=== PATIENT | male | born 1965 | race Caucasian/White ===

== ENCOUNTER → 2021-05-25 09:12 | Outpatient (BNVA) | payer SELFPAY | PROVIDERS: PCP Internal Medicine | DX: Z02.79 Encounter for issue of other medical certificate (principal) ==

== ENCOUNTER → 2024-10-15 10:33 | Outpatient (BNVA) | payer OTHER, SELFPAY | PROVIDERS: PCP Internal Medicine; Visit Provider Physician Assistant Medical | DX: S83.92XA Sprain of unspecified site of left knee, initial encounter (principal); W18.30XA Fall on same level, unspecified, initial encounter | CPT/HCPCS: 73564; 99203 ==

== ENCOUNTER → 2024-10-21 07:39 | Outpatient (BNVA) | payer OTHER, SELFPAY | PROVIDERS: PCP Internal Medicine; Visit Provider Physician Assistant Medical | DX: S80.02XA Contusion of left knee, initial encounter (principal); S83.92XA Sprain of unspecified site of left knee, initial encounter; W18.30XA Fall on same level, unspecified, initial encounter; M23.52 Chronic instability of knee, left knee | CPT/HCPCS: 99213 ==

== ENCOUNTER → 2024-10-31 08:06 | Outpatient (BNVA) | payer OTHER, SELFPAY | PROVIDERS: PCP Internal Medicine; Visit Provider Physician Assistant Medical | DX: S80.02XD Contusion of left knee, subsequent encounter (principal); W18.30XD Fall on same level, unspecified, subsequent encounter; M23.52 Chronic instability of knee, left knee | CPT/HCPCS: 99213 ==

== ENCOUNTER → 2024-11-08 12:47 | Outpatient (BNVA) | payer OTHER, SELFPAY | PROVIDERS: PCP Internal Medicine; Visit Provider Physician Assistant Medical | DX: S80.02XD Contusion of left knee, subsequent encounter (principal); W18.30XD Fall on same level, unspecified, subsequent encounter; M23.52 Chronic instability of knee, left knee | CPT/HCPCS: 99213 ==

== ENCOUNTER → 2024-11-18 08:50 | Outpatient (BNVA) | payer OTHER, SELFPAY | PROVIDERS: Visit Provider Physician Assistant Medical | DX: S80.02XD Contusion of left knee, subsequent encounter (principal); W18.30XA Fall on same level, unspecified, initial encounter; M23.52 Chronic instability of knee, left knee | CPT/HCPCS: 99213 ==

== ENCOUNTER 2024-11-21 18:29 | Outpatient (REF) | payer OTHER, SELFPAY ==
--- NOTE | ~2024-11-21 | MR_ITS ---
EXAMINATION: MRI LEFT KNEE WITHOUT CONTRAST HISTORY: INSTABILITY COMPARISON: Comparison is made with the prior examination dated 05/13/2018. Correlation is also made with plain films of the left knee dated 10/15/2024. TECHNIQUE: Coronal T1 and fat-suppressed proton density, sagittal proton density and fat-suppressed proton density, and axial fat suppressed T2 weighted MR images of the left knee were obtained. FINDINGS: Bone marrow: Bone marrow signal intensity is normal. Joint effusion: There is a small to moderate joint effusion. Lyn's cyst: There is no Lyn's cyst. Articular cartilage: There is mild to moderate cartilage thinning involving the medial compartment and moderate osteoarthritis of the patellofemoral compartment with cartilage loss and subchondral marrow changes. Multiple cartilage fissures are seen involving the patellar cartilage. Muscles/soft tissues: The visualized muscles demonstrate normal signal intensity. Anterior cruciate ligament: Intact Posterior cruciate ligament: When compared to the prior examination, the posterior cruciate ligament is thickened and demonstrates increased signal intensity suggestive of a partial tear. Medial collateral ligament: Intact Lateral collateral ligament: Intact Medial meniscus: The posterior meniscal body and posterior horn are diminutive in size, which may be postsurgical in nature. There is a focus of increased signal intensity at the inferior margin of the posterior horn suggestive of a tear (series 10, images 7-9). Lateral meniscus: Intact Flexor mechanism: The popliteus, gastrocnemius, and hamstring tendons are intact. Quadriceps tendon: Intact Patellar tendon: Intact Patellar retinacula: Intact MR/MR knee LT wo con IMPRESSION: 1. Small to moderate joint effusion. Osteoarthritis of the medial and patellofemoral compartments as described. 2. Probable postsurgical changes involving the posterior body and posterior horn of the medial meniscus. There is likely an oblique tear of the posterior horn. 3. Posterior cruciate ligament is thickened and demonstrates increased signal intensity suggestive of a partial tear. Electronically signed by: Eagle Mike MD 11/22/2024 07:18 AM EDT
--- OUTSIDE RECORDS SUMMARY | 2024-11-21 20:05 | XMS_ITS ---
Author Name [facility] Organization Unknown Encounters Encounter Type Encounter Reason Primary Diagnosis Location Date Ambulatory [facility] 11/26/2021 Ambulatory Injury [facility] [place] 11/26/2021 Care Team Organization Name Specialty Phone Email Start Date End Da te [facility] 11/26
== END 2024-11-21 18:30 | disposition home or self-care (01) ==
LOC: HO.MRI 18:29
PROVIDERS: Visit Provider Internal Medicine
DX: M25.562 Pain in left knee (principal)
CPT/HCPCS: 73721

== ENCOUNTER → 2024-11-21 18:30 | Outpatient (BNV) | payer OTHER, SELFPAY | PROVIDERS: Visit Provider Radiology Diagnostic Radiology | DX: M17.12 Unilateral primary osteoarthritis, left knee (principal); M25.462 Effusion, left knee | CPT/HCPCS: 73721 ==

== ENCOUNTER 2024-12-02 08:19 | Outpatient (REF) | payer OTHER, SELFPAY ==
--- NOTE | ~2024-12-02 | XR_ITS ---
EXAMINATION: XR KNEE, LEFT CLINICAL INFORMATION: M25.562 - Pain in left knee COMPARISON: X-ray 10/15/2024 TECHNIQUE: Two views of the left knee. Bilateral knees one AP view FINDINGS: Left knee: Mild medial and patellofemoral arthrosis. No acute fracture or dislocation. Chronic appearing small ossification along the lateral aspect of the patella. There is density in the suprapatellar soft tissues, which could be related to overlapping densities, joint effusion difficult to exclude. Right knee: Single frontal view. Mild medial compartment arthritis. No acute osseous finding seen. XR/XR knee LT 3V IMPRESSION: Left knee: No acute osseous findings. Small chronic appearing ossification along the lateral aspect of the patella. Suprapatellar density from overlapping structures versus effusion. Electronically signed by: Doyle Cowan MD 12/02/2024 02:25 PM EDT
== END 2024-12-02 08:20 | disposition home or self-care (01) ==
LOC: HO.HOSX 08:19
PROVIDERS: Visit Provider Physician Assistant
DX: M17.12 Unilateral primary osteoarthritis, left knee (principal)
CPT/HCPCS: 20610; 73562; 99202; J0665; J1100; J2003

== ENCOUNTER 2024-12-02 13:52 | Outpatient (AMB) | payer OTHER, SELFPAY ==
--- NOTE | 2024-12-02 13:58 | MHC.OFFVIS ---
Vital Signs 12/02/24 14:30 Height 6 ft 5 in Weight 240 lb BMI 28.5 Intake Visit Reasons: WC-Left knee Instability -DOI 10/11/24 per TM Intake Note: Viral is a 59 year old male who presents today as a new patient for an evaluation of a work injury to left knee, DOI 10/11/24. 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 He was seen at work connection with complaints of swelling and instability. MRI was obtained and referred to orthopedics. Today patient reports pain at the posterior aspect of knee with flexing his knee and pain at medial and lateral aspect with squatting. His pain increases with stair use and prolong walking. He has been out of work since his injury. Hx of left knee medial menisectomy and chrondroplasty, performed by Dr. Anglin on 05/31/2017. Allergies No Known Allergies (No Known Allergies*) Allergy (Unverified 12/02/24 14:34) Medication List - Last Reconciled 12/02/24 by Joo Pascal PA-C amlodipine 10 mg PO DAILY triamterene-hydrochlorothiazid 75-50 mg 1 tab PO DAILY HPI HPI WC-Left knee Instability -DOI 10/11/24 per TM: Details: A 59-year-old gentleman presents to the office today for an injury he sustained to his left knee while at work on 10/11/2024. He states he was getting out of his truck when he tripped and landed on the left knee. Was seen at the work connection , x-rays and an MRI of the left knee were ordered and he was referred to Orthopedics for further evaluation. He has remained out of work since the date of injury. Prior to the injury he was ambulating without pain or limitations. [facility] Surgical History (Updated 12/02/24 @ 14:35 by FRANCISCO JAVIER Paredes) Hx of left knee surgery History of shoulder surgery Social History (Updated 12/02/24 @ 14:27 by FRANCISCO JAVIER Paredes) Patient Tobacco Use Status: Never used Tobacco Current occupational status: employed Current occupation: tow truck Review of Systems Const All systems reviewed & are unremarkable except as noted in HPI and below Physical Exam Vital Signs: BMI result Body Mass Index 28.5 Const General: cooperative and no acute distress Orientation/consciousness: patient oriented x3 Resp Effort & Inspection: normal respiratory effort and able to speak in complete sentences Cardio Peripheral pulses: Peripheral pulses 2+ throughout Neuro General: patient oriented x3 Extrem Other: Left knee normal to inspection he has full range of motion with crepitus and tenderness to palpation over the lateral aspect of the patella. No ligamentous laxity. Calf is supple and nontender neurovascularly intact. Office Procedures AMB Joint Injection/Aspiration Joint Injection/Aspiration Primary Site: left knee Prep: site was prepped using aseptic technique, ethochloride spray was applied and injection warnings given Injected: 40 mg of, DepoMedrol, with 3 mL of, 1% plain lidocaine, 0.25% bupivacaine, in the joint and decadron Approach Used: anterolateral Coding - Glenohumeral/Tronchanteric Bursa/Intraarticular Procedure code (CPT) selection complete Results Reviewed Results Reviewed: X-rays of the left knee obtained in the office today and reviewed by me show mild to moderate degenerative changes MR knee LT wo con IMPRESSION: 1. Small to moderate joint effusion. Osteoarthritis of the medial and patellofemoral compartments as described. 2. Probable postsurgical changes involving the posterior body and posterior horn of the medial meniscus. There is likely an oblique tear of the posterior horn. 3. Posterior cruciate ligament is thickened and demonstrates increased signal intensity suggestive of a partial tear. Electronically signed by: Eagle Mike MD 11/22/2024 07:18 AM EDT Assessment & Plan Assessment & Plan (1) Osteoarthritis of left patellofemoral joint: Code(s): M17.12 - Unilateral primary osteoarthritis, left knee Category: Medical Plan: We discussed options today which include conservative management with physical therapy and steroid injections. 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 An order for physical therapy has been placed and he will contact them to make an appointment. He was given a work note to remain out of work for the next 4 weeks at which point he will return without restrictions. If symptoms persist or worsen over the next 8-12 weeks she will follow up otherwise follow up as needed. Orders: Orders PT Evaluation and Treatment Today M17.12 - Unilateral primary osteoarthritis, left knee XR knee LT 3V Today M25.562 - Pain in left knee Coding Level of Care Code New Pt Level 3 (72341) Complex EM visit Add On G2211 Diagnoses Osteoarthritis of left patellofemoral joint M17.12 CPT Codes Coding - Joint 7: 72936 - Glenohumeral/Tronchanteric Bursa/Intraarticular ([id number])
[2024-12-02 14:30] VITALS: BMI 28.5
== END 2024-12-02 15:14 | disposition home or self-care (01) ==
LOC: HO.HOS 13:53
PROVIDERS: PCP Internal Medicine; Visit Provider Physician Assistant
DX: M17.12 Unilateral primary osteoarthritis, left knee (principal)
CPT/HCPCS: 20610; 99203

== ENCOUNTER → 2024-12-02 13:58 | Outpatient (BNV) | payer OTHER, SELFPAY | PROVIDERS: Visit Provider Radiology Diagnostic Ultrasound | DX: M25.562 Pain in left knee (principal) | CPT/HCPCS: 73562 ==

== ENCOUNTER 2025-01-22 06:56 | Outpatient (RCR) | payer OTHER, SELFPAY ==
--- NOTE | 2025-01-01 09:25 | MHC.PT.EP ---
[facility] [place] Office [place] [facility] [place] [facility] [address] [phone] F: [phone] F: [phone] F: [phone] F: [phone] Physical Therapy Plan of Care Date of Evaluation: 01/01/25 Date of Surgery: Diagnosis: Unilateral primary osteoarthritis, left knee Osteoarthritis of left patellofemoral joint Assessment: Pt is a very pleasant and motivated 59yo M who presents to PT with L knee pain. Pt reports on 10/11/24 he was working and he stepped out of the truck and fell. He was able to get up but had swelling and pain in his L knee later that day. He was OOW and returned to work this past Monday. He presents to PT with current impairments in pain, decreased LE strength, decreased endurance, decreased stability, and impaired body mechanics. He is limited functionally by prolonged sitting, stair navigation, and squatting. He is an excellent candidate for skilled PT in order to address current impairments to facilitate return to PLOF. He is recommended to be seen 2x/week for 4 weeks and will be reassessed at that time Frequency and Duration: The patient will be seen 2x/week for 4 weeks Short Term Goals: Pt will be I with HEP to promote self management of symptoms Pt will improve L knee extension strength to 4+/5 Pt will improve L hip extension strength to 4/5 Mcc Goals: Pt will achieve full knee and hip strength LLE to assist with prolonged standing and walking Pt will demonstrate ability to squat with proper mechanics and without pain Pt will ascend/descend 1 flight of stairs with reciprocal pattern with minimal pain Pt will demonstrate improvements in function as evidenced by statistically significant improvement in LEFI outcome measure Treatment Plan: Modalities to reduce pain, spasms and effusion. Manual therapy to restore motion and function. Therapeutic exercise to improve strength and flexibility. Neuromuscular re-education for posture and balance. Therapeutic activities to return to functional activities of daily living. Electronically signed by: Aparna Henriquez, PT, DPT Please sign and return to therapist. Thank you for your referral.
--- NOTE | 2025-01-22 08:27 | MHC.PT.DC ---
[facility] [place] Office [place] Office [place] Office [address] [phone] F: [phone] F: [phone] F: [phone] F: [phone] Physical Therapy Discharge Report Diagnosis: Unilateral primary osteoarthritis, left knee Osteoarthritis of left patellofemoral joint Date of Surgery: Date of Evaluation: 01/01/25 Date of Discharge: 01/22/25 Treatments to Date: 6 Cancellations to Date: No Shows to Date: Discharge Status: Achieved Goals Improved Function Independent with HEP Discharge Summary: ASAD PRESENTED THIS AM FEELING READY FOR D/C FROM PT= HE HAS MET HIS PT GOALS, ULTIMATELY, RTW REG DUTY, INDEP W HEP. RECIP TECHN W STAIR NAVIG, WFL SQUAT MEC, MET ROM AND STRENGTH GOALS . HIS LEFI AT D/C WA S 62/80. Electronically signed by: CALEB SENIOR,PT Please sign and return to therapist. Thank you for your referral.
== END 2025-01-22 08:28 | disposition home or self-care (01) ==
LOC: HO.PT 06:56
PROVIDERS: PCP Internal Medicine; Visit Provider Physician Assistant
DX: M17.12 Unilateral primary osteoarthritis, left knee (principal)
CPT/HCPCS: 97110; 97112; 97140; 97161